=== PATIENT | female | born 1990 | race Asian ===

== ENCOUNTER 2016-05-07 03:56 | Inpatient (IN) | payer OTHER ==
[~2016-05-07] VITALS: Ht 162.6 cm; Wt 77.7 kg
[2016-05-07] MEDS ORDERED: PRENTAB26 PO (04:31)
[2016-05-07 04:34] VITALS: Ht 162.6 cm; Wt 77.7 kg
[2016-05-07] MEDS ORDERED: LACTATED RINGER'S 1000ML 1,000 ML IV PRN (06:37)
[2016-05-07] MEDS ORDERED: LACTATED RINGER'S 1000ML 1,000 ML IV SCH (06:37)
[2016-05-07] MEDS ORDERED: NALOXONE HCL INJ 1 MG in SODIUM CHLORIDE 0.9% 1000ML 1,000 ML IV PRN (07:06)
[2016-05-07] MEDS ORDERED: LACTATED RINGER'S 1000ML 500 ML IV PRN (07:06)
[2016-05-07] MEDS ORDERED: FENTANYL 2MCG/ML ROPIV 1.25MG/ML 100ML BAG EPI ONE (07:11)
[2016-05-07] MEDS ORDERED: EpHEDrine SULFATE INJ 50 MG/ML AMP ONE (07:11)
[2016-05-07] MEDS ORDERED: BUPIVACAINE 0.25% 30 ML VIAL ONE (07:11)
[2016-05-07] MEDS ORDERED: FENTANYL CITRATE INJ 50 MCG/1 ML 2 ML VIAL ONE (07:12)
[2016-05-07] MEDS ORDERED: FENTANYL 2MCG/ML ROPIV 1.25MG/ML 100ML BAG EPI PRN (07:15)
[2016-05-07] MEDS ORDERED: NALBUPHINE HCL INJ 10 MG/ML AMP IV PRN (07:15)
[2016-05-07] MEDS ORDERED: NALOXONE HCL INJ 0.4 MG/1 ML VIAL/CARP IV PRN (07:15)
[2016-05-07] MEDS ORDERED: ONDANSETRON INJ 2 MG/ML 2 ML VIAL IV PRN (07:15)
[2016-05-07] MEDS ORDERED: DiphenhydrAMINE HCL 50 MG/ML VIAL IV PRN (07:15)
[2016-05-07] MEDS ORDERED: EpHEDrine SULFATE INJ 50 MG/ML AMP IV PRN (07:15)
[2016-05-07 07:18] LABS: HEMATOCRIT 36.4 % (37-47); MEAN CELL VOLUME 92.2 fL (80-100); MEAN CORPUSCULAR HEMOGLOBIN 31.9 pg (25-34); MEAN CORPUSCULAR HGB CONC 34.6 g/dl (32-36); PLATELET COUNT 205 K/uL (130-400); RED BLOOD COUNT 3.95 M/uL (4.2-5.4); WHITE BLOOD COUNT 12.35 K/uL (4.8-10.8)
[2016-05-07] MEDS ORDERED: OXYTOCIN 30 UNITS/500ML NSS IV ONE (08:50)
[2016-05-07] MEDS ORDERED: MoRPHine SULFATE 4 MG/ML 1 ML CARP\\VIAL ONE (15:12)
[2016-05-07] MEDS ORDERED: HYDROCORTISONE ACETATE 25 MG SUPP PR PRN (15:15)
[2016-05-07] MEDS ORDERED: IBUPROFEN 600 MG TAB PO PRN (15:15)
[2016-05-07] MEDS ORDERED: SUPERCREAM 0.870 % 15GM JAR EXT PRN (15:15)
[2016-05-07] MEDS ORDERED: ACETAMINOPHEN/CODEINE 300/30MG TAB PO PRN ×2 (15:15)
[2016-05-07] MEDS ORDERED: OXYTOCIN 30 UNITS/500ML NSS IV PRN (15:15)
[2016-05-07] MEDS ORDERED: LANOLIN OINT EXT PRN ×2 (15:15)
[2016-05-07] MEDS ORDERED: BENZOCAINE 20% AER SPR 82.5 GM CAN EXT PRN (15:15)
--- NOTE | 2016-05-07 15:42 | DELIVERY SUMMARY ---
DATE OF OPERATION: 05/07/2016 DATE OF DELIVERY: 05/07/2016. DELIVERING SURGEON: Dr. Melgar. PRE-DELIVERY DIAGNOSES: 1. 25-year-old G2,P0-0-1-0 at 41 weeks 0 days. 2. History of miscarriage. 3. Maternal and tachycardia with no maternal fever in final hour of pushing. POSTDELIVERY DIAGNOSES: Same. PROCEDURE: Spontaneous vaginal delivery with repair of bilateral sulcal tears and second degree perineal laceration. ESTIMATED BLOOD LOSS: 400 mL. FINDINGS: Viable female with Apgars 8 and 7. DESCRIPTION OF DELIVERY: The patient progressed to complete with epidural anesthesia. Upon examination to determine that the patient had completely dilated and effaced spontaneous rupture of membranes occurred at the same time as exam with a scant amount of clear fluid. The patient then began to push. During the final hour of pushing after emptying the bladder the fetus became tachycardic in the 160s to 170s. Maternal heart rate was tachycardic in the 1-teens but no maternal fever was noted throughout. Mom remained afebrile. She then spontaneously vaginally delivered a viable female in the left occiput anterior position. The head delivered. No nuchal cord was noted. A compound hand was noted at time of delivery of the head. The anterior shoulder, followed by the posterior shoulder, followed by the body were delivered. The baby was warmed and dried and placed on the mother's abdomen where a spontaneous cry was heard. The cord was double clamped and cut. A cord segment was retained for gasses and these were sent. Cord blood was obtained. The placenta then delivered spontaneously intact with a 3-vessel cord. This was sent to pathology due to maternal and tachycardia for further evaluation. Pitocin was given, the uterus became firm, the uterus and vagina were swept of all clots and debris. The vagina, cervix and perineum were inspected and bilateral sulcal vaginal tears were noted as well as a second degree perineal tear a rectal exam was performed and no penetration of laceration was noted in the rectum and the anal sphincter was intact. The bilateral sulcal tears were repaired in a running locked stitch of 3-0 Vicryl and then the second degree perineal repair was performed using 3-0 Vicryl in standard fashion. An additional rectal exam was performed at the conclusion of the delivery to ensure no sutures were in the rectum. 1% lidocaine without epi was used for local anesthesia due to the patient's epidural not being adequate to cover pain control and the patient received 4 mg of morphine IV to additionally help with pain control during the repair. At the conclusion of the delivery all sponge, instrument and needle counts were correct x2. The mother tolerated the procedure well. The baby was evaluated by the stewarding supervisor during the first 5 minutes of life due to a decreasing score due to low oxygenation and the baby was taken to the [facility] for further eval. I attest to the content of the Intraoperative Record and any orders documented therein. Any exceptio ns are noted below.
--- NOTE | 2016-05-07 15:45 | Anesthesia Procedure Note ---
Anesthesia Epidural Removal Nt Date & Time May 07, 2016 at 15:44 Vital Signs Pain Intensity: 0.0 Notes Mental Status: alert / awake / arousable, participated in evaluation Nausea / Vomiting: adequately controlled Pain: adequately controlled Airway Patency, RR, SpO2: stable & adequate BP & HR: stable & adequate Hydration State: stable & adequate Neuraxial Anesthesia: was administered, sensory block is resolving Anesthetic Complications: no major complications apparent, pt satisfied with anesthetic care Epidural: removed without complications, with tip intact
[2016-05-07] MEDS: DOCUSATE SODIUM 100 MG CAP PO SCH (20:00)
[2016-05-07 21:10] VITALS: BP 106/72; PULSE 112; TEMP 37.1
[2016-05-07 23:45] VITALS: BP 111/73; PULSE 89; TEMP 36.6
[2016-05-08 03:40] VITALS: BP 93/60; PULSE 78; TEMP 36.4
--- NOTE | 2016-05-08 06:52 | Progress Note ---
Subjective May 08, 2016. Subjective conversation w/ patient, physical exam Ambulation: limited ambulation Voiding: no voiding problems Passing Gas: Yes Diet Tolerance: Regular Diet Lochia: Small Feeding Type: Breast Feeding Pain: 05/07 vaginal pain reported this morning, well controlled with motrin Review of Systems Constitutional: No chills, No fever Respiratory: No cough, No shortness of breath Cardiac: No chest pain Breast: No breast pain Abdomen: No nausea, No pain, No vomiting Female : No dysuria Objective Vital Signs Date Time Temp Pulse Resp B/P Pulse Ox O2 Delivery O2 Flow Rate FiO2 05/08/16 03:40 36.4 78 16 93/60 05/07/16 23:45 Room Air 05/07/16 23:45 36.6 89 16 111/73 05/07/16 21:10 37.1 112 16 106/72 Physical Exam General Appearance: WELL-APPEARING, WD/WN, NO APPARENT DISTRESS Respiratory/Chest: lungs clear, normal breath sounds Cardiovascular: regular rate, rhythm, no gallop, no murmur Abdomen: normal bowel sounds, non tender, soft Fundus: Firm, Relation to Umbilicus (At level of umbilicus) Extremities: no calf tenderness Laboratory Results Last 24 Hours Test 05/07/16 06:59 05/08/16 04:44 White Blood Count 12.35 K/uL Red Blood Count 3.95 M/uL Hemoglobin 12.6 g/dL Hematocrit 36.4 % Mean Corpuscular Volume 92.2 fL Mean Corpuscular Hemoglobin 31.9 pg Mean Corpuscular Hemoglobin Concent 34.6 g/dl RDW Standard Deviation 43.2 fL RDW Coefficient of Variation 12.7 % Platelet Count 205 K/uL Mean Platelet Volume 9.0 fL Medications Current Inpatient Medications Medications (Trade) Dose Ordered Sig/Erna Route Start Time Stop Time Status Last Admin Dose Admin Oxytocin (Pitocin IV) 30 units UD PRN IV 05/07/16 15:15 06/06/16 15:14 Benzocaine (Dermoplast Aero Spr) 1 appln PRN PRN EXT 05/07/16 15:15 06/06/16 15:14 Cocaine HCl (Supercream 0.870% Cr) BID PRN EXT 05/07/16 15:15 05/21/16 15:14 Hydrocortisone Acetate (Anusol Hc Supp) 25 mg BID PRN [place] 05/07/16 15:15 06/06/16 15:14 Lanolin (Lanolin Oint) PRN PRN EXT 05/07/16 15:15 06/06/16 15:14 Ibuprofen (Motrin Tab) 600 mg Q4H PRN PO 05/07/16 15:15 06/06/16 15:14 05/07/16 21:28 600 MG Acetaminophen/ Codeine Phosphate (Tylenol w/ Codeine #3 Tab) 1 tab Q4H PRN PO 05/07/16 15:15 06/06/16 15:14 Acetaminophen/ Codeine Phosphate (Tylenol w/ Codeine #3 Tab) 2 tab Q4H PRN PO 05/07/16 15:15 06/06/16 15:14 Bisacodyl (Dulcolax Tab) 5 mg 20 PO 05/08/16 20:00 05/08/16 20:01 Bisacodyl (Dulcolax Supp) 10 mg DAILY PRN [place] 05/09/16 07:00 Docusate Sodium (coLACE CAP) 100 mg BID PO 05/07/16 20:00 06/06/16 19:59 Assessment and Plan Day#: 1 Continue Routine Care: - Vital Signs reviewed and WNL (temp max 37.1) - Blood Type: A+, GBS- , Rubella Immune - Patient doing well clinically - Encourage Ambulation today - Pain well controlled with Motrin - Tolerating PO Diet Well Resident Physician Supervision Note: I was present with Dr. Malcolm during the history and exam. I discussed the case with the resident and agree with the findings and plan as documented in the note. Any exceptions or clarifications are listed here: Feeling well. Routine care. Documented By: Kaia Melgar
[2016-05-08 07:07] LABS: HEMATOCRIT 23.8 % (37-47)
[2016-05-08 08:45] VITALS: BP 98/67; PULSE 101; TEMP 36.6
[2016-05-08] MEDS: DOCUSATE SODIUM 100 MG CAP PO SCH ×2 (08:49→20:42)
[2016-05-08 12:45] VITALS: BP 102/70; PULSE 101; TEMP 36.5
[2016-05-08 15:30] VITALS: BP 108/63; PULSE 81; TEMP 36.6
[2016-05-08] MEDS ORDERED: BISACODYL 5 MG TABEC PO SCH (20:00)
[2016-05-09 00:15] VITALS: BP 104/68; PULSE 83; TEMP 36.7
--- NOTE | 2016-05-09 06:56 | Progress Note ---
Subjective May 09, 2016. Subjective conversation w/ patient, physical exam Ambulation: ambulating normally Voiding: no voiding problems Passing Gas: Yes Diet Tolerance: Regular Diet Lochia: Small Feeding Type: Breast Feeding Pain: No pain reported this morning Review of Systems Constitutional: No chills, No fever Respiratory: No cough, No shortness of breath Cardiac: No chest pain Breast: No breast pain Abdomen: No nausea, No pain, No vomiting Female : No dysuria Objective Vital Signs Date Time Temp Pulse Resp B/P Pulse Ox O2 Delivery O2 Flow Rate FiO2 05/09/16 00:15 Room Air 05/09/16 00:15 36.7 83 18 104/68 Room Air 05/08/16 15:30 Room Air 05/08/16 15:30 36.6 81 18 108/63 Room Air 05/08/16 12:45 36.5 101 18 102/70 Room Air 05/08/16 08:45 36.6 101 18 98/67 Room Air 05/08/16 08:45 Room Air Physical Exam General Appearance: WELL-APPEARING, WD/WN, NO APPARENT DISTRESS Respiratory/Chest: lungs clear, normal breath sounds Cardiovascular: regular rate, rhythm, no gallop, no murmur Abdomen: normal bowel sounds, non tender, soft Fundus: Firm, Relation to Umbilicus (At umbilicus) Extremities: no calf tenderness Medications Current Inpatient Medications Medications (Trade) Dose Ordered Sig/Erna Route Start Time Stop Time Status Last Admin Dose Admin Oxytocin (Pitocin IV) 30 units UD PRN IV 05/07/16 15:15 06/06/16 15:14 Benzocaine (Dermoplast Aero Spr) 1 appln PRN PRN EXT 05/07/16 15:15 06/06/16 15:14 Cocaine HCl (Supercream 0.870% Cr) BID PRN EXT 05/07/16 15:15 05/21/16 15:14 Hydrocortisone Acetate (Anusol Hc Supp) 25 mg BID PRN [place] 05/07/16 15:15 06/06/16 15:14 Lanolin (Lanolin Oint) PRN PRN EXT 05/07/16 15:15 06/06/16 15:14 Ibuprofen (Motrin Tab) 600 mg Q4H PRN PO 05/07/16 15:15 06/06/16 15:14 05/07/16 21:28 600 MG Acetaminophen/ Codeine Phosphate (Tylenol w/ Codeine #3 Tab) 1 tab Q4H PRN PO 05/07/16 15:15 06/06/16 15:14 Acetaminophen/ Codeine Phosphate (Tylenol w/ Codeine #3 Tab) 2 tab Q4H PRN PO 05/07/16 15:15 06/06/16 15:14 Bisacodyl (Dulcolax Supp) 10 mg DAILY PRN [place] 05/09/16 07:00 Docusate Sodium (coLACE CAP) 100 mg BID PO 05/07/16 20:00 06/06/16 19:59 05/08/16 20:42 100 MG Assessment and Plan Day#: 2 Continue Routine Care: - Vital Signs reviewed and WNL (temp max 36.7) - Blood Type: A+, GBS- , Rubella Immune - Patient doing well clinically - Encourage Ambulation today - Pain well controlled with Motrin - Tolerating PO Diet Well - Discharge today Resident Physician Supervision Note: I interviewed and examined the patient. Discussed with Dr. Malcolm and agree with findings and plan as documented in the note. Any exceptions or clarifications are listed here: [None] Documented By: Viraj Jimenez
--- NOTE | 2016-05-09 06:57 | Discharge Instructions ---
Discharge Instructions Admission Reason for Admission: LABOR Discharge Discharge Diagnosis / Problem: Vaginal Delivery Discharge Goals Goal(s): Routine recovery after delivery Medications Continue Dispensed Medications: supercream, dermaplast, tucks, lansinoh Activity Recommendations Activity Limitations: per Instructions/Follow-up section . Instructions / Follow-Up Instructions / Follow-Up ACTIVITY RECOMMENDATIONS: * Gradual return to full activity over the next 2-3 weeks. * No lifting - nothing heavier than baby over the next 2-3 weeks. * Do not engage in vigorous exercise, sexual activity or sports until cleared by your physician. * Do not drive or operate any motorized equipment until cleared by your physician. * You may shower/bathe daily. MEDICATIONS: For discomfort or pain, you may use Acetaminophen (Tylenol), Ibuprofen (Advil), or Naproxen (Aleve) following the package directions. For constipation you may use Colace following the package directions. BREAST CARE: If you are not breast feeding: * Wear a supportive bra 24 hours a day for one to two weeks. * Avoid stimulating your breasts and nipples as much as possible during the first few weeks after delivery. * When taking a shower, have the warm water hit your back, not breasts. * When your breasts feel full, apply ice packs. Usually three to four times a day helps ease the discomfort. * Take a mild pain medication (Tylenol / Motrin) when you are uncomfortable. If breast feeding: * Use breast milk to lubricate nipples. Lansinoh cream may be used for sore nipples. You do not need to remove cream prior to breast feeding. If using a different brand of cream, check the label for directions regarding removal of cream prior to nursing. * Wear a supportive bra. * If having problems with breasts or breast feeding, call a risk management consultant or your health care provider. EPISIOTOMY CARE: After delivery, if you have an episiotomy (stitches), the following steps will ease discomfort and aid healing. * For the first 24 hours after delivery, place ice packs next to your episiotomy to help reduce swelling. * After the first 24 hour-period, sitz baths, either portable or in the tub, are suggested. A shower with a shower arm sprayed over the episiotomy may be comforting. * Lidia care should be done after each voiding and bowel movement. Squirt warm water from a plastic bottle over the perineum (region of the body between the anus and urinary opening) and pat dry. * Use Dermoplast to ease discomfort. Shake container. [place] directly over the episiotomy. Place a Tucks on a clean sanitary pad next to your episiotomy. SPECIAL CARE INSTRUCTIONS: When you are discharged from the hospital, it is important for you to follow the instructions listed below: * During the first week at home, you should be able to care for yourself and your baby. In addition, the usual light household activities are encouraged. * Limit your activities to the way you feel. Do not try to clean the house or move furniture. Be sensible. * If you actively engage in sports and have done so up until the time of your delivery, you may resume these activities as soon as you feel able. This may take up to one month or even longer. Use good judgment. * Continue to take your vitamins for at least six weeks after the of your baby. * Your diet need not be limited unless you were on a special diet before your delivery. Breast-feeding mothers need around 2500 calories per day and at least 64-80 ounces of fluid per day (8 to 10 glasses). * You should eat foods from the four major food groups. Crash diets or fad diets are to be avoided. Eating lean meats, fresh fruits and vegetables, low-fat dairy products, high fiber foods and a regular exercise program, will help you get back to your pre- weight without putting your health at risk. * Constipation is sometimes a problem after delivery. Take a mild laxative as needed. If breast feeding, Milk of Magnesia is acceptable to use. You may use a suppository or Fleets enema if no episiotomy. * A daily shower or tub bath is suggested. Be sure to thoroughly and gently dry the perineum. * A bloody vaginal discharge will usually continue until around four weeks post . A small amount of bleeding may continue for as long as six weeks. Vaginal discharge changes from the bright red bleeding after delivery to pink then brownish and finally yellowish-pink before becoming white and disappearing. * Bleeding may increase with activity. Your first period may come in 4-8 weeks. If you are breast feeding, your period may be delayed even longer. * Peyton (sex) can begin whenever both you and your partner feel comfortable and do not have any form of genital infection. It is recommended that you wait at least six weeks for internal and external healing to occur. If you have questions, please talk to your health care practitioner. A condom should be used to prevent infection and . * Foreplay, gentle intercourse and lubrication is very important the first several times to prevent pain. A water-based lubricant such as K-Y jelly or Astroglide may be used. * If you have RH negative blood and your baby is RH positive, you will receive RHOGAM by injection prior to discharge. The nurse will give you a card to keep with you that has the date and place that you received RHOGAM after delivery. * During your care, you had a Rubella screen done to check for the presence of rubella antibodies in your blood. If your test was negative, you will receive a Rubella vaccine prior to discharge. This vaccine may cause a fever, soreness at the injection site and flu-like symptoms. If these symptoms persist, notify your health care practitioner. is not advised for one month after a Rubella vaccine. * Verbalizes understanding of car seat law as reviewed with patient nursing. * Car Seat hand-out given and reviewed with patient by nursing. * Shaken baby information reviewed with patient by nursing. Call you doctor if: * Heavy bleeding (saturating several pads an hour) or passing clots the size of your fist. * A fever >101 degrees F (38.3 degrees C) on two occasions four hours apart and /or chills. * Unusual pain in the pelvic or vaginal areas. * "Baby Blues" lasting longer than two weeks. If you have any questions or concerns, call your health care practitioner at . FOLLOW UP VISIT: * Please call the office at to schedule a 6 week examination. It is important you keep this appointment. It is important for you to make arrangements for either yearly or twice yearly check-ups thereafter. Current Hospital Diet Patient's current hospital diet: Regular OB Diet Discharge Diet Recommended Diet: Regular Diet Pending Studies Studies pending at discharge: no Medical Emergencies . Who to Call and When: Medical Emergencies: If at any time you feel your situation is an emergency, please call 911 immediately. . Non-Emergent Contact Non-Emergency issues call your: [employer] . . "Provider Documentation" section prepared by Mckinley Malcolm. VTE Core Measure Inpt VTE Proph given/why not?: Treatment not indicated
[2016-05-09] MEDS ORDERED: BISACODYL 10 MG SUPP PR PRN (07:00)
[2016-05-09 07:30] VITALS: BP 101/67; PULSE 82; TEMP 36.7; O2SAT 98
[2016-05-09] MEDS: DOCUSATE SODIUM 100 MG CAP PO SCH (07:56)
[2016-05-09] MEDS ORDERED: FRRS300 PO (08:00)
[2016-05-09 15:40] VITALS: BP_DIAS 67; PULSE 82; TEMP 36.7
== END 2016-05-09 15:40 | disposition home or self-care (01) | DRG 774 ==
LOC: C.LD 03:56 → C.OPB 03:56 → C.LD 06:38 → C.OBG 20:46
PROVIDERS: ADMIT Obstetrics & Gynecology; ATTEND Obstetrics & Gynecology
PROC: 10E0XZZ Delivery of Products of Conception, External Approach (ICD-10-PCS; principal; 2016-05-07)
PROC: 0KQM0ZZ Repair Perineum Muscle, Open Approach (ICD-10-PCS; principal; 2016-05-07)
DX: O48.0 Post-term pregnancy (principal); O99.42 Diseases of the circulatory system complicating childbirth; R00.0 Tachycardia, unspecified; O76 Abnormality in fetal heart rate and rhythm complicating labor and delivery; O32.6XX0 Maternal care for compound presentation, not applicable or unspecified; O70.1 Second degree perineal laceration during delivery; Z37.0 Single live birth; Z3A.41 41 weeks gestation of pregnancy